=== PATIENT | male | born 1990 | race Hispanic/Latino ===

== ENCOUNTER 2024-02-03 00:17 | Emergency (ER) | payer OTHER ==
[2024-02-03] VITALS (9 sets, daily range): BP systolic 87–126; BP diastolic 54–81
[~2024-02-03] VITALS: Ht 172.7 cm; Wt 127.0 kg
[~2024-02-03 00:17] MED LIST: LACRI-LUBE S.O.P. OS; METFORMIN500 M2 PO; PREDNISONE20 MG PO; VALTREX500 MG PO
[2024-02-03] MEDS ORDERED: Diph, Acellular Pertussis, Tet 0.5 ML/VIAL (Tdap) SDV IM ONE (00:35)
[2024-02-03] MEDS ORDERED: SODIUM CHLORIDE 0.9% 1,000 ML IV ONE ×2 (00:35→02:40)
[2024-02-03 00:49] LABS: BASO% 0.4 % (0-3); EOS% 0.7 % (0-8); HEMATOCRIT 49.8 % (39.0-50.0); HEMOGLOBIN 16.3 g/dl (14.0-18.0); IMMATURE GRANULOCYTES 0.6 % (0.0-5.0); LYMPH% 43.4 % (15-41); MEAN CELL VOLUME 85.7 fL CALC (80.0-100.0); MEAN CORPUSCULAR HGB 28.1 pG CALC (26.0-32.0); MEAN CORPUSCULAR HGB CONC 32.7 g/dL CAL (32.0-36.0); MONO% 2.9 % (2-13); NEUT# 6.9 thou/uL (1.82-7.42); RED BLOOD COUNT 5.81 mill/uL (4.70-6.10)
[2024-02-03 00:53] LABS: ALBUMIN 4.8 g/dL (3.2-5.0); BILIRUBIN, TOTAL 0.5 mg/dL (0.2-1.3); TOTAL PROTEIN 8.8 g/dL (6.3-8.2)
== END 2024-02-03 03:46 | DRG 605 ==
LOC: ED 00:17
PROVIDERS: Family Medicine
PROC: 0HQ1XZZ Repair Face Skin, External Approach (ICD-10-PCS; principal; 2024-02-03)
DX: S01.81XA Laceration without foreign body of other part of head, initial encounter (principal); F10.129 Alcohol abuse with intoxication, unspecified; Y90.9 Presence of alcohol in blood, level not specified; V58.5XXA Driver of pick-up truck or van injured in noncollision transport accident in traffic accident, initial encounter
CPT/HCPCS: 90715